=== PATIENT | male | born 1975 | race Caucasian/White ===

== ENCOUNTER 2017-12-01 10:23 | Day surgery (SDC) | payer OTHER ==
[2017-11-23 13:02] LABS: BASOPHILS % (AUTO) 0.2 % (0-1); EOSINOPHILS # (AUTO) 0.1 X10'3 (0-0.9); EOSINOPHILS % (AUTO) 1.1 % (0-6); LYMPHOCYTES # (AUTO) 1.5 X10'3 (1.1-4.8); LYMPHOCYTES % (AUTO) 23.6 % (21-51); MEAN CORPUSCULAR HEMOGLOBIN 30.5 PG (27.0-31.0); MEAN CORPUSCULAR HGB CONC 34.9 % (33.0-36.5); MEAN CORPUSCULAR VOLUME 87.5 FL (78-98); MEAN PLATELET VOLUME 6.8 FL (7.4-10.4); MONOCYTES # (AUTO) 0.4 X10'3 (0-0.9); NEUTROPHILS # (AUTO) 4.3 X10'3 (1.8-7.7); NEUTROPHILS % (AUTO) 69.1 % (42-75); PRE OP PLATELET COUNT 320 X10'3 (140-440); RED BLOOD COUNT 4.91 X10'6 (4.70-6.10); RED CELL DISTRIBUTION WIDTH 13.3 % (11.5-14.5)
[2017-11-23 13:16] LABS: ALBUMIN/GLOBULIN RATIO 1.1 (1.1-1.5); ALKALINE PHOSPHATASE 74 IU/L (46-116); BLOOD UREA NITROGEN 15 MG/DL (7-18); BUN/CREATININE RATIO 12.6 (5.4-32.0); CALCIUM 9.2 MG/DL (8.5-10.1); CHLORIDE 105 MMOL/L (99-107); CREATININE 1.19 MG/DL (0.60-1.10); PRE OP ALT 38 U/L (30-65); PRE OP ANION GAP 6 (8-16); PRE OP AST 18 U/L (10-37); PRE OP BILIRUB, TOTAL 0.6 MG/DL (0.0-1.0); PRE OP GLUCOSE 98 MG/DL (70-104); PRE OP POTASSIUM 4.1 MMOL/L (3.4-5.1); PRE OP SODIUM 139 MMOL/L (135-145); TOTAL CARBON DIOXIDE 27.6 MMOL/L (24-32); TOTAL PROTEIN 7.7 G/DL (6.4-8.2); eGFR 68 ML/MIN
[~2017-12-01] VITALS: Ht 170.2 cm; Wt 100.5 kg
[2017-12-01] VITALS (13 sets, daily range): BP systolic 110–140; BP diastolic 63–91
[~2017-12-01 10:23] MED LIST: Cefazolin 2GM/50ML dext iso,osmotic IVPB IV ONE; NAPR500T6 PO; VANCOMYCIN INJ 1000 MG in NORMAL SALINE 250ml IV.SOLN IV ONE; famotidine 20mg tablet PO ONE; ringers solution, lacted 1,000 ML IV SCH
[2017-12-01] MEDS ORDERED: sevoflurane 250ml liquid IH ONE (12:32)
[2017-12-01] MEDS ORDERED: fentaNYL/PF 50MCG/1 ML 2ML syringe ONE (12:34)
[2017-12-01] MEDS ORDERED: midazolam 2 mg/2 ml injection ONE ×2 (12:35)
[2017-12-01] MEDS ORDERED: propofol inj 20 ML IV ONE (12:35)
[2017-12-01] MEDS ORDERED: BUPIVAcaine/PF 2.5mg/ml (0.25%) 10ml vial ONE (12:43)
[2017-12-01] MEDS ORDERED: ringers solution, lacted 1,000 ML IV SCH (13:26)
[2017-12-01] MEDS ORDERED: proCHLORperazine 10 MG/2 ml inj IV PRN (13:30)
[2017-12-01] MEDS ORDERED: morphine 4 MG/ML inj SYRINge IV PRN ×2 (13:30)
[2017-12-01] MEDS ORDERED: ondansetron/PF 4mg/2ml inj IV PRN (13:30)
[2017-12-01] MEDS ORDERED: meperidine/PF 25mg/ml syringe IV PRN ×3 (13:30)
== END 2017-12-01 16:15 | disposition home or self-care (01) ==
LOC: PAS 10:23
PROVIDERS: ATTEND Orthopaedic Surgery
DX: M75.41 Impingement syndrome of right shoulder (principal); M19.011 Primary osteoarthritis, right shoulder; M65.811 Other synovitis and tenosynovitis, right shoulder; M94.211 Chondromalacia, right shoulder; M75.51 Bursitis of right shoulder; M75.111 Incomplete rotator cuff tear or rupture of right shoulder, not specified as traumatic; E66.01 Morbid (severe) obesity due to excess calories; G43.909 Migraine, unspecified, not intractable, without status migrainosus; F43.10 Post-traumatic stress disorder, unspecified; Z79.891 Long term (current) use of opiate analgesic; Z90.89 Acquired absence of other organs; Z68.34 Body mass index [BMI] 34.0-34.9, adult; Z87.820 Personal history of traumatic brain injury; Z88.6 Allergy status to analgesic agent; Z95.828 Presence of other vascular implants and grafts; Z87.442 Personal history of urinary calculi; Z98.890 Other specified postprocedural states
CPT/HCPCS: 29823; 29824; 29826; 36415; 80053; 85025; 93005; A6449; J0690; J2250; J2704; J3010; J3370; J3490; J7030; J7120; L3650; A6250; A7000